=== PATIENT | male | born 1940 | race Caucasian/White ===

== ENCOUNTER 2020-10-03 08:09 | Outpatient (REF) | payer MEDICARE, SELFPAY ==
--- NOTE | 2020-10-03 09:49 | MHC.AU.P13 ---
Adult Audiological Evaluation Date of Visit: 10/03/20 Reason for Appointment: History of hearing loss. Patient arrives today to determine if there has been a change in hearing. 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 Ear History: Bothersome Tinnitus/Ringing/Noises in Ears: Both Ears Hearing Instrument History- Right Ear: Insulation Board Back Tender: Livestationak Model: Freshplum Q50 BTE Battery Size: 13 Dispensed By: [facility] Hearing Instrument History- Left Ear: Insulation Board Back Tender: Phonak Model: Bolero Q50 BTE Battery Size: 13 Dispensed By: [facility] Otoscopy: Right Ear: Unremarkable Left Ear: Unremarkable Tympanometry: Right Ear: Reduced Middle Ear Compliance (Type As) Left Ear: Reduced Middle Ear Compliance (Type As) Hearing Evaluation: Transducer(s) Used: Insert Earphones Method: Conventional Audiometry Stimuli Used: Pure Tones Right Ear: Description of Hearing: Mild sloping to profound sensorineural hearing loss Left Ear: Description of Hearing: 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 Recommendations: Audiological re-evaluation in one year. See Hearing Aid Evaluation report for more information. Diagnosis: Primary Diagnosis: H90.3 Bilateral Sensorineural Hearing Loss Services Performed: Services Performed: Comprehensive Audiological Evaluation (CPT 61709), Tympanometry (CPT 65222) Signature: Provider: Rohini Khan, CHATO-A
--- NOTE | 2020-10-03 09:51 | MHC.AU.HAS ---
Hearing Aid Evaluation Date of Visit: 10/03/20 Historical Information: Description of Hearing: Mild sloping to severe/profound sensorineural hearing loss bilaterally Current personal amplification information, if applicable:: Phonak Bolnina Q50 BTE- obtained from [facility] Summary: Patient obtained his hearing aids in [address] [facility]. Hearing aid maintenance was performed today- it was noted that the tubing channel in the molds is very narrow from build-up of tubing cement. It was difficult to replace the tubing, and when it was replaced, it appeared to be pinching the end of the tubing almost shut. The overall sound quality seemed fairly reduced when listening to the hearing aids with the molds vs without the molds. Patient reports the batteries can be difficult to deal with. Discussed new hearing aid options for ease of use. Hearing Aid Prescription: Based on the individual?s shared listening needs, communication environments, dexterity, desire for connectivity, and personal preferences, the following prescription for amplification has been made: Right ear: Whitesmith: Moviepilot Model: Audeo P70-R Battery Size: Rechargeable Color: 01 Beige Yard Attendant: 1M Left ear: Whitesmith: Phonak Model: Audeo P70-R Battery Size: Rechargeable Color: 01 Beige Yard Attendant: 1M Action Taken/Action Needed: Prior authorization to be requested Medical Clearance to be requested from PCP/ENT Hearing Fitting to be scheduled when materials arrive Primary Diagnosis: H90.3 Bilateral Sensorineural Hearing Loss Signature: Provider: Rohini Khan, CHATO-A
--- NOTE | 2020-10-03 10:01 | MHC.AU.MED ---
Medical Clearance for Hearing Instrumentation Date: 10/03/20 Patient Name: Devin Zabala Date of : 1940 Primary Care Provider: Referring Provider: Jas Jernigan MD We have seen your patient on 10/03/20 and have determined that they are a candidate for amplification (See accompanying report). Specifically, they would benefit from: Hearing aid use in both ears There is a statute that addresses Medical Evaluation Requirements prior to fitting a patient with a hearing aid. According to [place] statute 265 CMR:6.03(1), (a) General. Except as provided in 265 CMR 6.03(1)(b), a website designer shall not sell a hearing aid unless the prospective user has presented to the website designer a written statement signed by a licensed physician that states that the patient's hearing loss has been medically evaluated and the patient may be considered a candidate for a hearing aid. The medical evaluation must have taken place within the preceding six months. Please note: Due to the [place] Statute referenced above, we cannot accept a signature other than that of a licensed physician. GRADUATE FELLOW and PA signatures cannot be accepted. I am in agreement with the above recommendation. There is no medical contraindication for hearing instrumentation. Physician Signature Date Physician Name (Printed)
== END 2020-10-03 08:10 | disposition home or self-care (01) ==
LOC: HO.SH 08:09
PROVIDERS: Visit Provider Family Medicine
DX: Z46.1 Encounter for fitting and adjustment of hearing aid (principal); H90.3 Sensorineural hearing loss, bilateral
CPT/HCPCS: 92557; 92567; 92591

== ENCOUNTER 2020-10-23 08:33 | Outpatient (REF) | payer MEDICARE, SELFPAY ==
--- NOTE | 2020-10-23 15:53 | MHC.AU.P13 ---
Hearing Instrument Fitting- Adult- Binaural Date of Visit: 10/23/20 Hearing Instruments Dispensed: Right Ear: School Social Worker: Phonak Model: Audeo P70-R Serial Number: [id number] Repair Warranty: 01/05/2024 Loss and Damage Warranty: 01/05/2024 Battery Size: Rechargeable Color: 01 Beige Cash Management Clerk: 1M Type of Dome: Small Power Type of Wax Guard: CeruShield Left Ear: School Social Worker: Phonak Model: Audeo P70-R Serial Number: [id number] RepairWarranty: 01/05/2024 Loss and Damage Warranty: 01/05/2024 Battery Size: Rechargeable Color: 01 Beige Cash Management Clerk: 2M Type of Dome: Small Power Type of Wax Guard: CeruShield Summary of Fitting: Feedback cell manager run. Verifit performed. Patient felt 100% target was too intense. Placed at 90% target. Patient requested additional slight decreased- lowered overall gain 3 steps. Patient was pleased with the sound of the instruments, reporting they were comfortable and clear. Hearing aid care and use were discussed and practiced. Patient does not wish to pair the hearing aids to a phone at this time. Recommendations: Recommendations: A hearing instrument follow-up was scheduled. Please call our clinic with any questions or concerns. Diagnosis Code(s): Primary Diagnosis: H90.3 Bilateral Sensorineural Hearing Loss Signature: Provider: Rohini Khan, CHATO-A
== END 2020-10-23 08:34 | disposition home or self-care (01) ==
LOC: HO.HAP 08:33
PROVIDERS: Visit Provider Family Medicine
DX: Z46.1 Encounter for fitting and adjustment of hearing aid (principal); H90.3 Sensorineural hearing loss, bilateral
CPT/HCPCS: V5011; V5020; V5160; V5261

== ENCOUNTER 2020-12-10 09:56 | Outpatient (REF) | payer MEDICARE, SELFPAY | END 2020-12-10 09:57 | disposition home or self-care (01) | LOC: HO.HAP 09:56 | PROVIDERS: Visit Provider Family Medicine | DX: Z13.89 Encounter for screening for other disorder (principal) ==

== ENCOUNTER 2024-03-14 08:42 | Outpatient (REF) | payer MEDICARE, SELFPAY | END 2024-03-14 08:43 | disposition home or self-care (01) | LOC: HO.SH 08:42 | PROVIDERS: Visit Provider Family Medicine | DX: Z01.118 Encounter for examination of ears and hearing with other abnormal findings (principal); H90.3 Sensorineural hearing loss, bilateral | CPT/HCPCS: 92552; 92556 ==